=== PATIENT | female | born 1970 | race American Indian/Alaskan Native ===

== ENCOUNTER 2018-09-13 09:03 | Outpatient (CLI) | payer OTHER | END 2018-09-13 09:49 | disposition home or self-care (01) | LOC: NST 09:03 | DX: Z34.83 Encounter for supervision of other normal pregnancy, third trimester (principal) ==

== ENCOUNTER 2018-10-19 13:34 | Outpatient (CLI) | payer OTHER | END 2018-10-19 14:42 | disposition home or self-care (01) | LOC: NST 13:34 | DX: Z34.83 Encounter for supervision of other normal pregnancy, third trimester (principal) ==

== ENCOUNTER → 2018-11-02 | Outpatient (CLI) | payer OTHER ==
[~2018-11-02] MED LIST: IRON236 MG PO; OBSTETRIX EC C1 EACH PO
== END | disposition home or self-care (01) ==
LOC: NST 08:42
DX: Z34.83 Encounter for supervision of other normal pregnancy, third trimester (principal)

== ENCOUNTER 2018-11-03 10:57 | Inpatient (IN) | payer OTHER ==
[~2018-11-03] VITALS: Ht 165.1 cm; Wt 2.3 kg
== END 2018-11-06 11:59 | disposition home or self-care (01) | DRG 788 ==
LOC: SURG-SUITE 10:57 → LDR 10:57 → O/R 14:05 → SURG-SUITE 14:08 → RECOVERY 11-05 13:00 → SURG-SUITE 11-06 11:59
PROVIDERS: ADMIT Obstetrics & Gynecology
PROC: 4A1HXCZ Monitoring of Products of Conception, Cardiac Rate, External Approach (ICD-10-PCS; 2018-11-03)
PROC: 10D00Z1 Extraction of Products of Conception, Low, Open Approach (ICD-10-PCS; principal; 2018-11-03 12:00)
DX: O82 Encounter for cesarean delivery without indication (principal); O13.4 Gestational [pregnancy-induced] hypertension without significant proteinuria, complicating childbirth; Z3A.38 38 weeks gestation of pregnancy; Z37.0 Single live birth